=== PATIENT | male | born 2000 | race Caucasian/White ===

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

== ENCOUNTER 2021-12-27 13:54 | Emergency (ER) | payer MEDICAID, SELFPAY ==
[2021-12-27 13:55] VITALS: BP 138/86; PULSE 73; RESP 18; TEMP 36.8; O2SAT 100; BMI 21.9
--- NOTE | 2021-12-27 13:59 | NURSING ---
NO OLD EKGS
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
--- NOTE | 2021-12-27 14:09 | EKG12_ITS ---
Test Reason : Blood Pressure : / mmHG Vent. Rate : 083 BPM Atrial Rate : 083 BPM P-R Int : 130 ms QRS Dur : 090 ms QT Int : 378 ms P-R-T Axes : 060 058 068 degrees QTc Int : 444 ms Sinus rhythm with marked sinus arrhythmia Otherwise normal ECG Confirmed by ANGELA HUFFMAN, TEODORO ([id number]), acquisitions editor RUY REYNOSO ([id number]) on 12/29/2021 8:15:17 AM Referred By: Confirmed By:TEODORO MILLER MD
[2021-12-27 14:24] LABS: Absolute Lymphocyte Count 1.88 X10^3/uL (0.83-4.51); Basophil# 0.02 X10^3/uL; Basophil% 0.6 % (0-1); Eosinophil# 0.29 X10^3/uL; Hematocrit 43.2 % (40-54); Hemoglobin 14.5 g/dL (13.0-16.5); Lymphocyte # 1.88 X10^3/ul (0.83-4.51); Lymphocyte % 52.1 % (19-41); Mean Corp Hgb Conc 33.6 g/dL (32-36); Mean Corpuscular Hgb 28.6 pg (27.0-32.0); Mean Corpuscular Volume 85.2 fL (80-94); Mean Platelet Vol. 10.1 fl (6.2-12.0); Monocyte# 0.44 X10^3/uL; Monocyte% 12.2 % (0-10); NRBC Flagged by Analyzer 0 % (0-5); Neutrophil # 0.98 X10^3/uL (2.7-7.7); Neutrophil % 27.1 % (47-70); POSITIVE DIFFERENTIAL YES; Platelet Count 198 K/mm3 (150-450); RBC Distribution Width CV 12.8 % (11.6-14.6); RBC Distribution Width SD 39.5 fl (35.1-43.9); Red Blood Count 5.07 M/mm3 (4.6-6.2); White Blood Count 3.6 K/mm3 (4.4-11.0)
[2021-12-27 14:27] LABS: Differential Indicated SCAN CRITERIA MET
--- NOTE | 2021-12-27 14:30 | RAD_ITS ---
STUDY: X-RAY CHEST REASON FOR EXAM: Male, 21 years old. near syncope TECHNIQUE: Single AP portable view of the chest. COMPARISON: None. FINDINGS: The lungs are clear and expanded. There is no demonstrated pleural abnormality. Normal size heart. Normal mediastinum and malgorzata. Normal visualized pulmonary arteries. Normal visualized aortic arch and descending thoracic aorta. Normal visualized thoracic spine. Normal visualized ribs, clavicles, and shoulders. There is no demonstrated abnormality of the visualized soft tissue structures of the upper abdomen. RAD/Chest 1 View (Portable) IMPRESSION: Normal x-ray examination of the chest. Electronically Signed: Poncho Anderson MD at 15:21 EDT ,
[2021-12-27 14:35] LABS: D-Dimer Quantitative (DVT/PE) 0.29 FEU/ug/m (0.27-0.49)
[2021-12-27 14:41] LABS: ALB/GLOB Ratio 1.3 RATIO (0.9-2.4); AST(SGOT) 53 U/L (15-37); Alanine Aminotransfer ALT/SGPT 94 U/L (16-61); Albumin, Serum 4.1 g/dL (3.2-5.0); Alkaline Phosphatase 74 U/L (45-117); Anion Gap 6 (5-15); BUN 15 mg/dL (7-18); BUN/Creat Ratio 15.9 RATIO (10-20); Calcium,Total 8.9 mg/dL (8.5-10.1); Chloride 103 mmol/L (98-107); Creatinine, Serum 0.94 mg/dL (0.70-1.30); EST Glomerular Filtration Rate 108 mL/min (>60); Est Glom Filt Rate - Afr Amer 130 mL/min (>60); Estimated Creatinine Clearance 112.59 ml/min; Globulin 3.2 g/dL (2.2-4.2); Glucose 121 mg/dL (74-106); Potassium 3.6 mmol/L (3.5-5.1); Protein, Total 7.3 g/dL (6.4-8.2); Sodium Level 136 mmol/L (136-145); Troponin-I HS 3 pg/mL (3.0-78.0)
[2021-12-27 14:56] VITALS: BP 136/73; PULSE 74; RESP 16; O2SAT 99
== END 2021-12-27 14:57 | disposition home or self-care (01) ==
PROVIDERS: Emergency Provider Emergency Medicine; PCP Pediatrics; Visit Provider Emergency Medicine
DX: U07.1 COVID-19 (principal)
CPT/HCPCS: 71045; 80053; 84484; 85025; 85379; 87811; 93005; 99284; A4216

== ENCOUNTER 2024-04-08 20:28 | Emergency (ER) | payer MEDICAID, SELFPAY ==
[2024-04-08 20:31] VITALS: BP 141/99; PULSE 126; RESP 18; TEMP 36.4; O2SAT 100; BMI 31.6
[2024-04-08 21:30] VITALS: BP 114/51; PULSE 91
--- NOTE | 2024-04-08 21:52 | RAD_ITS ---
INDICATION: chest pain EXAMINATION/TECHNIQUE: X-RAY - XR Chest 1 View COMPARISON: 12/27/2021 chest radiograph. Findings: Single frontal view of the chest. LUNG PARENCHYMA: No acute focal airspace disease or mass lesion. PLEURA: No pleural effusion. No pneumothorax. HEART/GREAT VESSELS: Cardiomediastinal silhouette is unremarkable. BONES: Osseous structures are unremarkable for age. RAD/Chest 1 View (Portable) IMPRESSION: Chest with no acute disease. Electronically Signed: Gregorio Aguilar MD at 23:39 EDT ,
--- NOTE | 2024-04-08 21:53 | EDS_ITS ---
HPI History of Present Illness Chief Complaint: Chest Pain Informant: patient Onset/Context/Timing Onset: Today Activity at onset: sudden Timing: Continuous Quality: Positive for Tightness Location: Left Chest Worsened By: Nothing Relieved By: Nothing Associated Symptoms: Positive for Nausea, Diaphoresis, Dyspnea, Cough, Lightheadedness and Palpitations; Negative for Vomiting, Fever or Acid Reflux Narrative Narrative: Patient presents with chest pain that began today. Patient states it began rather suddenly. Patient states it has been constant all day. Patient describes it as a tightness. Patient states it is over the left chest area. Patient states nothing makes it worse and nothing makes it better. Patient admits to some nausea but denies any vomiting. Patient admits to some diaphoresis. Patient also admits to cough and shortness of breath. Patient states he feels lightheaded and dizzy. Patient also admits to some palpitations. Patient denies any fevers or chills. CVD Risk Factors: Positive for Family History 1' </=55; Negative for Hypertension, Diabetes, Hypercholesterolemia or Smoking PE Risk Factors: Negative for Recent Travel/Surgery, Recent Immobilization, Prior DVT or PE, Cancer or OCP + Smoking + >/=35 PFSH PFSH Medical History no medical history no medical history Home Medications ?Medication ?Instructions ?Recorded ?Last Taken ?Type NK 12/27/21 Unknown History Allergy/AdvReac Type Severity Reaction Status Date / Time No Known Allergies Allergy Verified 04/08/24 20:31 Family History (Updated 04/08/24 @ 23:[address] Travon Cuellar, ) Father CAD (coronary artery disease) Surgical History no surgical history no surgical history Social History Smoking Status: Never smoker substance use type: does not use ROS ROS ED Constitutional Constitutional ED: Reports sweats; Denies chills or fever(s) Eyes Eyes: Denies blurry vision or change in vision ENT ENT ED: Reports rhinorrhea and sore throat Cardiovascular Cardiovascular: Reports chest pain and palpitations Respiratory/Chest Respiratory/Chest: Reports cough and dyspnea Gastrointestinal Gastrointestinal: Reports nausea; Denies vomiting Genitourinary Genitourinary ED: Denies dysuria or hematuria Musculoskeletal Musculoskeletal: Denies back pain or neck pain Integumentary Denies abscess or rash Neurologic Neurologic: Denies headache(s) or weakness Allergic/Immunologic Allergic/Immunologic ED: Denies mouth swelling or urticaria EXAM Physical Exam Const Vital Signs: 04/08/24 20:31 04/08/24 21:30 04/08/24 22:00 Temperature 97.5 F L Temperature Source Temporal Pulse Rate 126 H 91 93 Respiratory Rate 18 Blood Pressure 141/99 H 114/51 L 119/81 H Blood Pressure Mean 113 72 93 Pulse Ox 100 Oxygen Delivery Method Room Air 04/08/24 22:04 04/08/24 23:00 Temperature Temperature Source Pulse Rate 89 Respiratory Rate 19 H Blood Pressure 124/79 H Blood Pressure Mean 94 Pulse Ox 97 Oxygen Delivery Method Room Air Room Air Positive well nourished and well developed General Appearance ED: well developed and NAD HEENT Reports moist mucous membranes Neck supple and no JVD Chest Wall Chest: tenderness pectoral muscle left Resp normal respiratory effort and clear to auscultation bilaterally Cardio regular rate and regular rhythm GI soft to palpation, non-tender and non-distended Neuro oriented x3, CN's II-XII intact bilaterally and no sensory deficits noted Sensorium / Orientation: awake and alert Motor Exam: strength 5/5 throughout Heart Score History: Slightly/Non-Suspicious ECG: Normal Age: </= 45 years Risk Factors: 1 or 2 Risk Factors Troponin: </= Normal Limit Score: 1 MDM MDM MDM Narrative Medical decision making narrative: Differential diagnosis includes cardiac dysrhythmia, cardiac ischemia, pneumonia, pneumothorax, GERD, musculoskeletal pain, and anxiety. EKG will be obtained to assess for cardiac dysrhythmia and cardiac ischemia. Chest x-ray will be obtained to assess for pneumonia and pneumothorax. CBC will be obtained to assess for leukocytosis and anemia. Basic metabolic profile will be obtained to assess for electrolyte abnormality and renal function. High-sensitivity troponin will be obtained to assess for cardiac ischemia. Lab Data Attestation: I reviewed the patient's lab results. Lab results narrative: CBC was reviewed and was within normal limits. Basic metabolic profile was reviewed and was within normal limits. High-sensitivity troponin was reviewed and was normal at 4. Labs: Laboratory Results - last 24 hr 04/08/24 22:02 WBC 9.2 RBC 4.99 Hgb 13.9 Hct 41.1 MCV 82.4 MCH 27.9 MCHC 33.8 RDW Std Deviation 37.0 RDW Coeff of Raul 12.4 Plt Count 306 MPV 9.6 Immature Gran % (Auto) 0.500 Neut % (Auto) 62.2 Lymph % (Auto) 23.1 [place]ill % (Auto) 9.2 Eos % (Auto) 4.6 Baso % (Auto) 0.4 Absolute Neuts (auto) 5.7 Absolute Lymphs (auto) 2.12 Nucleated RBC % 0 Sodium 140 Potassium 3.9 Chloride 105 Carbon Dioxide 28.0 Anion Gap 6 BUN 10 Creatinine 0.91 Estim Creat Clear Calc 136.40 Est GFR (MDRD) Af Amer 133 Est GFR (MDRD) Non-Af 110 BUN/Creatinine Ratio 11.0 Glucose 90 Calcium 8.8 Troponin I High Sens 4 Radiography Chest X-Ray - ED: 1 View, Read by ED Physician, Read by Radiologist and No Acute Disease Diagnostic Testing: Portable 1 view chest x-ray was obtained. On my independent interpretation, lung carias are clear. There is normal cardiac silhouette. Bony thorax is normal. There is no acute process noted. Radiologist also interpreted the x- ray and agrees. EKG Initial EKG: Interpretation: No Acute Injury Pattern and Sinus Tachycardia (111) Comments: EKG was obtained. On my independent interpretation, it showed a sinus tachycardia with a rate of 111. NH interval, QRS interval, and QTc intervals were all normal. [place] was normal. There are no acute ST or T wave changes. Differential Diagnosis Chest pain/SOB: pulmonary embolism Reason(s) PE less likely: Positive for Well's <3 and not hypoxic Treatment and Re-Evaluation :: Patient was given aspirin here. Patient was advised of his findings. Patient has a HEART score of 1. Patient was advised that this is low risk for acute cardiac event. Patient was instructed to follow-up with his primary care physician in 5 to 7 days for further evaluation. Patient was advised he may possibly need further testing as an outpatient. Patient understood and was agreeable with the plan. All questions were answered. Discharge Plan Triage Chief Complaint: Chest Pain Other Complaint: Dizziness ED Provider: Travon Cuellar Dx/Rx/DC Orders Clinical Impression: Chest pain, Body mass index (BMI) of 30 to 39 in adult Instructions: ED Chest Pain, Uncertain Cause Prescriptions: No Action NK Primary Care Provider: Saira Sosa Referrals: Saira Sosa MD [Primary Care Provider] - 5-7 Days Print Language: Bolivian Disposition Disposition: Home, Self Care
[2024-04-08 22:00] VITALS: BP 119/81; PULSE 93
[2024-04-08 22:15] LABS: Absolute Lymphocyte Count 2.12 X10^3/uL (0.83-4.51); Absolute Neutrophil Count 5.7 X10^3/uL (2.0-7.7); Basophil# 0.04 X10^3/uL; Basophil% 0.4 % (0-1); Eosinophil# 0.42 X10^3/uL; Eosinophils% 4.6 % (0-5); Hematocrit 41.1 % (40-54); Hemoglobin 13.9 g/dL (13.0-16.5); Lymphocyte # 2.12 X10^3/ul (0.83-4.51); Lymphocyte % 23.1 % (19-41); Mean Corp Hgb Conc 33.8 g/dL (32-36); Mean Corpuscular Hgb 27.9 pg (27.0-32.0); Mean Corpuscular Volume 82.4 fL (80-94); Mean Platelet Vol. 9.6 fl (6.2-12.0); Monocyte# 0.84 X10^3/uL; Monocyte% 9.2 % (0-10); NRBC Flagged by Analyzer 0 % (0-5); Neutrophil # 5.69 X10^3/uL (2.7-7.7); Neutrophil % 62.2 % (47-70); Platelet Count 306 K/mm3 (150-450); RBC Distribution Width CV 12.4 % (11.6-14.6); Red Blood Count 4.99 M/mm3 (4.6-6.2); White Blood Count 9.2 K/mm3 (4.4-11.0)
[2024-04-08] MEDS: Aspirin 81 MG TAB.CHEW 324 MG PO (22:23)
[2024-04-08 22:37] LABS: Anion Gap 6 (5-15); BUN 10 mg/dL (7-18); Calcium,Total 8.8 mg/dL (8.5-10.1); Chloride 105 mmol/L (98-107); Creatinine, Serum 0.91 mg/dL (0.70-1.30); EST Glomerular Filtration Rate 110 mL/min (>60); Est Glom Filt Rate - Afr Amer 133 mL/min (>60); Glucose 90 mg/dL (74-106); Potassium 3.9 mmol/L (3.5-5.1); Sodium Level 140 mmol/L (136-145); Troponin-I HS 4 pg/mL (3.0-78.0)
[2024-04-08 23:00] VITALS: BP 124/79; PULSE 89; RESP 19; O2SAT 97
[2024-04-08 23:29] VITALS: BP 129/74; PULSE 74; RESP 16; TEMP 36.2; O2SAT 100
== END 2024-04-08 23:30 | disposition home or self-care (01) ==
PROVIDERS: Emergency Provider Emergency Medicine; PCP Pediatrics; Visit Provider Emergency Medicine
DX: R07.89 Other chest pain (principal); Z82.49 Family history of ischemic heart disease and other diseases of the circulatory system
CPT/HCPCS: 71045; 80048; 84484; 85025; 93005; 99285; A4216